=== PATIENT | male | born 1990 | race Caucasian/White ===

== ENCOUNTER 2018-07-03 12:33 | Emergency (ER) | payer OTHER ==
[2018-07-03 12:45] VITALS: BP 119/76; PULSE 87; RESP 20; TEMP 98; O2SAT 98; BMI 26.8
--- NOTE | 2018-07-03 13:13 | ED PDOC ---
Lower Extremity Pain/Injury Time Seen by Provider: 07/03/18 12:47 Chief Complaint (Nursing): Lower Extremity Problem/Injury Chief Complaint (Provider): Lower Extremity Problem History Per: Patient History/Exam Limitations: no limitations Onset/Duration Of Symptoms: Days (3-4x months, worsening) Current Symptoms Are (Timing): Still Present Additional Complaint(s): 28 year old male with no pertinent past medical history presents to the ED for evaluation of atraumatic left knee and left ankle pain, worsening for the past 3-4x months. Patient states that the pain worsens with walking, is a 3-4/10 when sitting, and a 7-8/10 when walking. Patient denies taking medications for pain; denies any history of previous falls, injuries, or surgeries to the affected areas. Otherwise: (-) shortness of breath, (-) chest pain, (-) vomiting, (-) diarrhea, (-) abdominal pain, (-) fever, (-) prolonged period of immobility (-) history of cancer. PMD: None provided Past Medical History Reviewed: Historical Data, Nursing Documentation, Vital Signs Vital Signs: Last Vital Signs Temp 98 F 07/03/18 12:45 Pulse 87 07/03/18 12:45 Resp 20 07/03/18 12:45 BP 119/76 07/03/18 12:45 Pulse Ox 98 07/03/18 12:45 NICKY Report Viewed: Yes - Medical History PMH: No Chronic Diseases - Family History Family History: States: No Known Family Hx - Social History Current smoker - smoking cessation education provided: Yes (light, 1 cigarette every other day) - Home Medications Home Medications: Ambulatory Orders Medication Instructions Recorded Acetaminophen [Acetaminophen 8 650 mg PO Q8 PRN #21 tablet.er 07/03/18 Hour] Naproxen 500 mg PO BID PRN #20 tab 07/03/18 - Allergies Allergies/Adverse Reactions: Allergies Allergy/AdvReac Type Severity Reaction Status Date / Time No Known Allergies Allergy Verified 07/03/18 12:55 Review of Systems ROS Statement: Except As Marked, All Systems Reviewed And Found Negative Constitutional: Negative for: Fever Cardiovascular: Negative for: Chest Pain Respiratory: Negative for: Shortness of Breath Gastrointestinal: Negative for: Vomiting, Abdominal Pain, Diarrhea Musculoskeletal: Positive for: Other (left knee and left ankle pain) Physical Exam - Reviewed Nursing Documentation Reviewed: Yes Vital Signs Reviewed: Yes - Physical Exam Comments: GENERAL APPEARANCE: Patient is awake, alert, oriented x 3, in no acute distress. Resting comfortably, gait steady in ED. SKIN: Warm, dry; (-) cyanosis. LOWER EXTREMITY: Ankle: (-) ecchymosis (-) swelling (-) tenderness (-)effusion (-) skin break (-) limited range of motion. Achilles tendon intact with mild tenderness. Left knee: (-) tenderness, (-) effusion, (-) erythema, (-) warmth (- ) skin break (-) ecchymosis. Knee: (-) anterior or posterior draw sign, (-) instability on valgus or varus stress. (-) shea test (-) calf tenderness (-) palpable cord. Strength of lower extremities symmetric. Capillary refill intact. Foot: nontender with full ROM. CARDIOVASCULAR: (+) distal pulse. NEUROLOGIC: (+) distal sensation. LUNGS: clear to auscultation bilaterally, (-) wheezing, (-) rhonchi, (-) rales. Respirations even and nonlabored. CARDIAC: RRR NECK: Supple, FROM - ECG O2 Sat by Pulse Oximetry: 98 (RA) Pulse Ox Interpretation: Normal Medical Decision Making Medical Decision Makin:45 Clinical impression: 28 year old male with acute knee and ankle pain, likely tendonitis. * naproxen 500 mg PO * reevaluation 1330 On re-evaluation, patient reports improvement of symptoms. On exam, patient remains AAOx3, in no acute distress. Vitals stable. RICE encouraged. Lab/Diagnostic results d/w the patient in great detail. Diagnosis of acute knee and ankle pain, probable tendonitis d/w the patient. Based on history, exam and diagnostic results, plan will be for outpatient follow up with PMD/clinic. Patient instructed to follow-up with pmd / referral provided / the clinic in 1- 2 days without fail. Advised to take medication as prescribed. Return to the emergency room at any time for any new or worsening symptoms. Patient states he fully agrees with and understands discharge instructions. States that he agrees with the plan and disposition. Verbalized and repeated discharge instructions and plan. I have given the patient opportunity to ask any additional questions. ScribeAttestation: Documented byDarlyn Marcus, acting as a scribe for Darlyn Robles Provider ScribeAttestation: All medical record entries made by the Scribe were at my direction and personally dictated by me. I have reviewed the chart and agree that the record accurately reflects my personal performance of the history, physical exam, medical decision making, and the department course for this patient. I have also personally directed, reviewed, and agree with the discharge instructions and disposition. Disposition - Clinical Impression Clinical Impression: Ankle pain, Knee pain, acute, Tendonitis - Patient ED Disposition Is Patient to be Admitted: No Counseled Patient/Family Regarding: Studies Performed, Diagnosis, Need For Followup, Rx Given - Disposition Referrals: Podiatry Clinic [Outside] [facility] [Outside] Fritz Larios MD [Staff Provider] - Disposition: Routine/Home Disposition Time: 13:30 Condition: STABLE Additional Instructions: The emergency medical care you received today was directed at your acute symptoms. If you were prescribed any medication, please fill it and take as directed. It may take several days for your symptoms to resolve. Return to the Emergency Department if your symptoms worsen, do not improve, or if you have any other problems. Please contact your doctor in 2 days for re-evaluation and follow up / or call one of the physicians/clinics you have been referred to that are listed on the Patient Visit Information form that is included in your discharge packet. Bring any paperwork you were given at discharge with you along with any medications you are taking to your follow up visit. Our treatment cannot replace ongoing medical care by a primary care provider (PCP) outside of the emergency department. Prescriptions: Acetaminophen [Acetaminophen 8 Hour] 650 mg PO Q8 PRN #21 tablet.er PRN Reason: Pain, Moderate (4-7) Naproxen 500 mg PO BID PRN #20 tab PRN Reason: Pain, Moderate (4-7) Instructions: Tendonitis, Achilles Tendinopathy (DC), Patellofemoral Pain (DC), Knee Pain Forms: [facility] (Stateless) Print Language: AFGHAN - POA Present On Arrival: None
[2018-07-03] MEDS ORDERED: Naproxen 500 MG TAB PO STA (13:19)
[2018-07-03] MEDS ORDERED: Naproxen 500 MG TAB PO ONE (13:25)
== END 2018-07-03 13:53 | disposition home or self-care (01) ==
LOC: H.ER 12:33
DX: M25.572 Pain in left ankle and joints of left foot (principal); M25.562 Pain in left knee; M77.9 Enthesopathy, unspecified; F17.210 Nicotine dependence, cigarettes, uncomplicated